=== PATIENT | female | born 1975 | race Caucasian/White ===

== ENCOUNTER 2017-05-04 08:45 | Emergency (ER) | payer OTHER ==
[2017-05-04 09:35] LABS: BASO % 0.3 % (0.0-1.0); EOS % 0.5 % (0.0-3.0); HEMATOCRIT 39.8 % (36.0-47.0); HEMOGLOBIN 13.5 g/dl (12.0-16.0); IMMATURE GRANULOCYTE % 0.4 % (0-3.0); LYMPH # 2.3 10^3/uL (1.5-4.5); LYMPH % 29.6 % (24.0-44.0); MEAN CORPUSCULAR HGB CONC 33.9 g/dl (32.0-36.5); MEAN CORPUSCULAR VOLUME 94.3 fl (80.0-96.0); MONO # 0.4 10^3/uL (0.0-0.8); MONO % 4.5 % (0.0-5.0); NEUTROPHILS # 5.1 10^3/uL (1.8-7.7); NEUTROPHILS % 64.7 % (36.0-66.0); PLATELET COUNT, AUTOMATED 215 10^3/uL (150-450); RED BLOOD COUNT 4.22 10^6/uL (4.00-5.40); RED CELL DISTRIBUTION WIDTH 12.2 % (11.5-14.5); WHITE BLOOD COUNT 7.8 10^3/uL (4.0-10.0)
[2017-05-04 09:58] LABS: ALBUMIN 4.6 GM/DL (3.2-5.2); ALBUMIN/GLOBULIN RATIO 1.35 (1.00-1.93); ALKALINE PHOSPHATASE 59 U/L (45-117); ALT/SGPT 20 U/L (12-78); ANION GAP 8 MEQ/L (8-16); AST/SGOT 12 U/L (7-37); BILIRUBIN,TOTAL 0.5 MG/DL (0.2-1.0); BLOOD UREA NITROGEN 10 MG/DL (7-18); CALCIUM LEVEL 9.1 MG/DL (8.5-10.1); CARBON DIOXIDE LEVEL 28 MEQ/L (21-32); CHLORIDE LEVEL 104 MEQ/L (98-107); CREATININE FOR GFR 0.71 MG/DL (0.55-1.30); GLOMERULAR FILTRATION RATE > 60.0 (>58); GLUCOSE, FASTING 103 MG/DL (70-100); POTASSIUM SERUM 4.3 MEQ/L (3.5-5.1); SODIUM LEVEL 140 MEQ/L (136-145)
[2017-05-04 10:06] LABS: KETONE, URINE AUTO RFX NEGATIVE (NEGATIVE); LEUKOCYTE ESTERASE UR AUTO RFX TRACE (NEGATIVE); MUCUS, URINE RFX SMALL (NEGATIVE); NITRITE, URINE AUTO RFX NEGATIVE (NEGATIVE); RBC, URINE AUTO RFX 0 /HPF (0-3); SPECIFIC GRAVITY UR AUTO RFX 1.006 (1.002-1.035); SQUAM EPITHELIAL CELL UR AURFX 1 /HPF (0-6); WBC, URINE AUTO RFX 7 /HPF (0-3)
[2017-05-04 11:30] LABS: HCG, SERUM QUANTITATIVE 74 MIU/ML
== END 2017-05-04 11:23 | disposition home or self-care (01) ==
LOC: M ED 08:45
DX: O20.0 Threatened abortion (principal); Z88.0 Allergy status to penicillin; Z3A.00 Weeks of gestation of pregnancy not specified
CPT/HCPCS: 76801

== ENCOUNTER 2018-06-13 07:32 | Emergency (ER) | payer OTHER ==
[~2018-06-13] VITALS: Ht 170.2 cm; Wt 97.7 kg
[2018-06-13] MEDS ORDERED: NS 1,000 ML IV ONE (08:30)
[2018-06-13 08:53] LABS: BASO % 0.2 % (0.0-1.0); EOS # 0.1 10^3/uL (0.0-0.50); HEMOGLOBIN 11.7 g/dl (12.0-15.5); LYMPH # 2.3 10^3/uL (1.5-4.5); LYMPH % 22.7 % (24.0-44.0); MEAN CORPUSCULAR HEMOGLOBIN 32.4 pg (27.0-33.0); MEAN CORPUSCULAR HGB CONC 33.4 g/dl (32.0-36.5); MONO # 0.6 10^3/uL (0.0-0.8); MONO % 5.5 % (0.0-5.0); NEUTROPHILS % 70.2 % (36.0-66.0); PLATELET COUNT, AUTOMATED 201 10^3/uL (150-450); RED BLOOD COUNT 3.61 10^6/uL (4.00-5.40)
[2018-06-13 09:18] LABS: ALBUMIN 3.7 GM/DL (3.2-5.2); ALT/SGPT 18 U/L (12-78); AMYLASE 21 U/L (25-115); BILIRUBIN,DIRECT 0.1 MG/DL (0.0-0.2); BILIRUBIN,TOTAL 0.4 MG/DL (0.2-1.0); BLOOD UREA NITROGEN 18 MG/DL (7-18); CALCIUM LEVEL 8.5 MG/DL (8.5-10.1); CARBON DIOXIDE LEVEL 29 MEQ/L (21-32); CHLORIDE LEVEL 106 MEQ/L (98-107); CREATININE FOR GFR 0.89 MG/DL (0.55-1.30); GLOMERULAR FILTRATION RATE > 60.0 (>58); GLUCOSE, FASTING 105 MG/DL (70-100); HCG, SERUM QUALITATIVE NEGATIVE (NEGATIVE); LIPASE 89 U/L (73-393); SODIUM LEVEL 139 MEQ/L (136-145)
--- NOTE | 2018-06-13 09:54 | REP ---
RIGHT UPPER QUADRANT ULTRASOUND: Real-time sonographic evaluation of the right upper quadrant performed. The gallbladder demonstrates no evidence of intraluminal sludge or calculi, wall thickening or pericholecystic fluid. There is no intrahepatic or extrahepatic biliary dilatation, common bile duct measuring 3 mm. Liver and pancreas demonstrate no gross mass, pancreas not optimally seen due to overlying bowel gas. The right kidney is normal in size with a length of 11.7 cm with no hydronephrosis. IMPRESSION: Negative right upper quadrant ultrasound. Electronically Signed by Bj Clarke MD 06/13/2018 02:44 P
--- NOTE | 2018-06-13 10:34 | REP ---
KUB: Two views. History: Right-sided abdominal pain. Findings: Supine view of the abdomen show a normal bowel gas pattern. Psoas margins and flank stripes are intact. No mass, organomegaly, or pathologic calcification is seen. There is a mild dextroconvex curvature in the lumbar spine. No acute bony abnormality. Impression: Unremarkable KUB. Electronically Signed by Carmine Foster MD 06/13/2018 10:26 A
[2018-06-13] MEDS ORDERED: KETOROLAC 30 MG/ML VIAL (J1885) IV ONE (10:45)
[2018-06-13 11:08] LABS: APPEARANCE, URINE HAZY (CLEAR); BACTERIA, URINE AUTO 3+ (NEGATIVE); BILIRUBIN, URINE AUTO NEGATIVE (NEGATIVE); BLOOD, URINE BLOOD 1+ (NEGATIVE); COLOR, URINE YELLOW (YELLOW); GLUCOSE, URINE (UA) AUTO NEGATIVE (NEGATIVE); KETONE, URINE AUTO NEGATIVE (NEGATIVE); LEUKOCYTE ESTERASE, URINE AUTO TRACE (NEGATIVE); MUCUS, URINE SMALL (NEGATIVE); NITRITE, URINE AUTO POSITIVE (NEGATIVE); PROTEIN, URINE AUTO NEGATIVE (NEGATIVE); RBC, URINE AUTO 1 /HPF (0-3); SPECIFIC GRAVITY URINE AUTO 1.015 (1.002-1.035); SQUAMOUS EPITHELIAL CELL UR AU 2 /HPF (0-6); UROBILINOGEN, URINE AUTO 0.2 mg/dL (0.0-2.0); WBC, URINE AUTO 14 /HPF (0-3)
[2018-06-13] MEDS ORDERED: CIPR-249 PO (11:27)
[2018-06-13] MEDS ORDERED: CIPROFLOXACIN 500 MG TAB PO ONE (11:30)
[2018-06-13] MEDS ORDERED: NITROFURANTOIN (MACROBID) 100 MG CAP PO ONE (11:30)
[2018-06-13 11:49] VITALS: BP 111/62
== END 2018-06-13 12:17 | disposition home or self-care (01) ==
LOC: M ED 07:32
DX: N39.0 Urinary tract infection, site not specified (principal); N12 Tubulo-interstitial nephritis, not specified as acute or chronic; Z88.0 Allergy status to penicillin
CPT/HCPCS: 36415; 74018; 76705; 80048; 80076; 81001; 82150; 83690; 84703; 85025; 87088; 87186; 96374; 99284; J1885

== ENCOUNTER → 2018-10-10 | Outpatient (REF) | payer OTHER ==
[~2018-10-10] MED LIST: CIPR-249 PO
[2018-10-10 13:54] LABS: APPEARANCE, URINE HAZY (CLEAR); BACTERIA, URINE AUTO 1+ (NEGATIVE); BILIRUBIN, URINE AUTO NEGATIVE (NEGATIVE); BLOOD, URINE BLOOD NEGATIVE (NEGATIVE); COLOR, URINE STRAW (YELLOW); GLUCOSE, URINE (UA) AUTO NEGATIVE (NEGATIVE); KETONE, URINE AUTO NEGATIVE (NEGATIVE); LEUKOCYTE ESTERASE, URINE AUTO TRACE (NEGATIVE); NITRITE, URINE AUTO NEGATIVE (NEGATIVE); PROTEIN, URINE AUTO NEGATIVE (NEGATIVE); RBC, URINE AUTO 0 /HPF (0-3); SPECIFIC GRAVITY URINE AUTO 1.005 (1.002-1.035); SQUAMOUS EPITHELIAL CELL UR AU 3 /HPF (0-6); UROBILINOGEN, URINE AUTO 0.2 mg/dL (0.0-2.0); WBC, URINE AUTO 1 /HPF (0-3)
== END ==
LOC: M LAB REF 12:19
PROVIDERS: ATTEND Physician Assistant Medical
DX: N39.0 Urinary tract infection, site not specified (principal)

== ENCOUNTER 2022-12-23 15:00 | Observation (INO) | payer SELFPAY ==
[~2022-12-23] VITALS: Ht 171.4 cm; Wt 109.1 kg
[~2022-12-23 15:00] MED LIST changes: +ACET-907 PO; +UNRESOLVED CLARIFICATION ENTRY XX SCH
[2022-12-26] MEDS ORDERED: MOM 30ML SUSPENSION UDC PO PRN (18:55)
[2022-12-26] MEDS ORDERED: ACETAMINOPHEN TAB 650MG DOSE (2X325MG) PO PRN (18:55)
[2022-12-26] MEDS ORDERED: KETOROLAC 30 MG/ML 1ML VIAL IV PRN (19:10)
[2022-12-26 19:17] VITALS: BP 140/86; TEMP 97.7; O2SAT 97
[2022-12-26] MEDS ORDERED: HOME MED LIST COMPLETE! XX SCH (19:45)
[2022-12-26] MEDS ORDERED: celebrex PO (19:45)
[2022-12-26 20:55] LABS: HEMATOCRIT 35.6 % (36.0-47.0); MEAN CORPUSCULAR HEMOGLOBIN 32.8 pg (27.0-33.0); MEAN CORPUSCULAR HGB CONC 33.7 g/dl (32.0-36.5); MEAN CORPUSCULAR VOLUME 97.3 fl (80.0-96.0); PLATELET COUNT, AUTOMATED 216 10^3/uL (150-450); RED BLOOD COUNT 3.66 10^6/uL (4.00-5.40); WHITE BLOOD COUNT 9.2 10^3/uL (4.0-10.0)
[2022-12-26] MEDS: DOCUSATE SODIUM 100MG CAPSULE PO SCH (21:00)
[2022-12-26 21:12] LABS: INR 0.99; PROTHROMBIN TIME 12.8 SECONDS (12.5-14.5)
[2022-12-26 21:22] LABS: BLOOD UREA NITROGEN 14 MG/DL (9-23); CALCIUM LEVEL 9.3 MG/DL (8.5-10.1); CARBON DIOXIDE LEVEL 27 MMOL/L (20-31); CHLORIDE LEVEL 108 MMOL/L (98-107); CREATININE FOR GFR 0.73 MG/DL (0.55-1.30); GLOMERULAR FILTRATION RATE > 60.0 (>58); GLUCOSE, FASTING 118 MG/DL (60-100); SODIUM LEVEL 141 MMOL/L (136-145)
[2022-12-26 22:00] VITALS: BP 137/79; TEMP 97.3; O2SAT 96
[2022-12-27] VITALS (9 sets, daily range): BP systolic 117–155; BP diastolic 73–89; TEMP 95.6–97.8; O2SAT 94–97
[2022-12-27 06:53] LABS: HEMATOCRIT 36.7 % (36.0-47.0); HEMOGLOBIN 12.4 g/dl (12.0-15.5); MEAN CORPUSCULAR HEMOGLOBIN 32.5 pg (27.0-33.0); MEAN CORPUSCULAR HGB CONC 33.8 g/dl (32.0-36.5); MEAN CORPUSCULAR VOLUME 96.1 fl (80.0-96.0); PLATELET COUNT, AUTOMATED 208 10^3/uL (150-450); RED BLOOD COUNT 3.82 10^6/uL (4.00-5.40); WHITE BLOOD COUNT 7.3 10^3/uL (4.0-10.0)
[2022-12-27 07:17] LABS: BLOOD UREA NITROGEN 12 MG/DL (9-23); CALCIUM LEVEL 9.1 MG/DL (8.5-10.1); CARBON DIOXIDE LEVEL 27 MMOL/L (20-31); CHLORIDE LEVEL 107 MMOL/L (98-107); CREATININE FOR GFR 0.68 MG/DL (0.55-1.30); GLOMERULAR FILTRATION RATE > 60.0 (>58); GLUCOSE, FASTING 110 MG/DL (60-100); POTASSIUM SERUM 4.4 MMOL/L (3.5-5.1); SODIUM LEVEL 140 MMOL/L (136-145)
[2022-12-27] MEDS ORDERED: CLINDAMYCIN 900MG/50ML PREMIX BAG As Ordered ONE ×2 (07:53→11:59)
[2022-12-27] MEDS ORDERED: TRANEXAMIC ACID 100 MG/ML 10ML VIAL As Ordered ONE (07:53)
[2022-12-27] MEDS ORDERED: ROCURONIUM BROMIDE 50MG/5ML VIAL As Ordered ONE (08:17)
[2022-12-27] MEDS ORDERED: LIDOCAINE 2% 100MG/5ML SDV (FOR ANES.) As Ordered ONE (08:17)
[2022-12-27] MEDS ORDERED: propofoL 200 MG/20 ML VIAL As Ordered ONE (08:17)
[2022-12-27] MEDS ORDERED: fentaNYL 250 MCG/5 ML INJECTION As Ordered ONE (08:17)
[2022-12-27] MEDS ORDERED: MIDAZOLAM INJ 2MG/2ML VIAL As Ordered ONE (08:18)
[2022-12-27] MEDS: DOCUSATE SODIUM 100MG CAPSULE PO SCH ×2 (09:00→21:05)
[2022-12-27] MEDS ORDERED: PHENYLephrine 500MCG 5ML (100MCG/ML) SYRINGE As Ordered ONE (09:22)
[2022-12-27] MEDS ORDERED: ePHEDrine SULFATE 25 MG/5 ML(5MG/ML) SYRINGE As Ordered ONE (09:22)
[2022-12-27] MEDS ORDERED: HYDROmorphone HCL 2MG/ML 1ML VIAL As Ordered ONE (10:01)
[2022-12-27] MEDS ORDERED: KETOROLAC 60MG 2ML VIAL As Ordered ONE (10:25)
[2022-12-27] MEDS ORDERED: METOCLOPRAMIDE INJ 10MG/2ML VIAL As Ordered ONE (10:25)
[2022-12-27] MEDS ORDERED: ONDANSETRON 4MG 2ML VIAL As Ordered ONE (10:25)
[2022-12-27] MEDS ORDERED: ACETAMINOPHEN 1000MG 100ML IV BAG As Ordered ONE (10:25)
[2022-12-27] MEDS ORDERED: SUGAMMADEX SODIUM 500 MG/5 ML VIAL (BRIDION) As Ordered ONE (10:26)
[2022-12-27] MEDS ORDERED: DESFLURANE 240 ML INHALANT As Ordered ONE (11:31)
[2022-12-27] MEDS ORDERED: VANCOMYCIN 1000MG/20ML VIAL As Ordered ONE (12:08)
[2022-12-27] MEDS ORDERED: oxyCODONE 5MG TAB PO PRN ×2 (12:50→14:15)
[2022-12-27] MEDS ORDERED: ONDANSETRON 4MG 2ML VIAL IV PRN ×2 (12:50→14:15)
[2022-12-27] MEDS ORDERED: fentaNYL 100 MCG/2 ML INJECTION IV PRN ×2 (12:50→14:15)
[2022-12-27] MEDS ORDERED: MEPERIDINE 25 MG/ML 1ML VIAL IV PRN (12:50)
[2022-12-27] MEDS ORDERED: HYDROMORPHONE HCL 0.5 MG/ 0.5 ML SYRINGE IV PRN ×2 (12:50→14:15)
[2022-12-27] MEDS ORDERED: PROCHLORPERAZINE 10MG 2ML VIAL IV PRN (14:00)
[2022-12-27] MEDS ORDERED: LR 1,000 ML IV SCH ×2 (14:15)
[2022-12-27] MEDS: MORPHINE 4 MG/ML 1ML VIAL IV PRN ×3 (15:03→23:38)
[2022-12-27] MEDS: ONDANSETRON 4MG ORAL DISINTEGRATING TAB SL PRN ×2 (17:28→20:41)
[2022-12-27] MEDS: ACETAMINOPHEN 500 MG TAB PO SCH ×2 (18:31→23:40)
[2022-12-27] MEDS: LACTOBACILLUS ACIDOPHILUS CAP (BACID) PO SCH ×2 (18:32→21:05)
[2022-12-27] MEDS: CLINDAMYCIN 900 MG in IV 1 EA IV SCH (21:04)
[2022-12-27] MEDS: KETOROLAC 30 MG/ML 1ML VIAL IV PRN (23:39)
[2022-12-28 04:00] VITALS: BP 120/70; TEMP 97.3; O2SAT 94
[2022-12-28] MEDS: CLINDAMYCIN 900 MG in IV 1 EA IV SCH (05:23)
[2022-12-28] MEDS: MORPHINE 4 MG/ML 1ML VIAL IV PRN (05:24)
[2022-12-28] MEDS: ACETAMINOPHEN 500 MG TAB PO SCH ×2 (05:25→11:40)
[2022-12-28] MEDS: KETOROLAC 30 MG/ML 1ML VIAL IV PRN (05:25)
[2022-12-28] MEDS: LACTOBACILLUS ACIDOPHILUS CAP (BACID) PO SCH ×2 (07:49→12:30)
[2022-12-28] MEDS: DOCUSATE SODIUM 100MG CAPSULE PO SCH (07:49)
[2022-12-28 08:00] VITALS: BP 128/76; TEMP 96.7; O2SAT 98
[2022-12-28 08:15] VITALS: O2SAT 95
[2022-12-28 08:39] LABS: HEMATOCRIT 33.9 % (36.0-47.0); HEMOGLOBIN 11.3 g/dl (12.0-15.5); MEAN CORPUSCULAR HEMOGLOBIN 32.7 pg (27.0-33.0); MEAN CORPUSCULAR HGB CONC 33.3 g/dl (32.0-36.5); PLATELET COUNT, AUTOMATED 225 10^3/uL (150-450); RED BLOOD COUNT 3.46 10^6/uL (4.00-5.40); WHITE BLOOD COUNT 15.1 10^3/uL (4.0-10.0)
[2022-12-28] MEDS ORDERED: oxyCODONE 5MG TAB PO PRN ×2 (09:40)
[2022-12-28] MEDS ORDERED: KETOROLAC TROMETHAMINE 10 MG TAB PO PRN (09:40)
[2022-12-28] MEDS ORDERED: OXYC-517 PO ×2 (11:00→12:33)
[2022-12-28] MEDS ORDERED: ACET-683 PO ×2 (11:00→12:33)
[2022-12-28] MEDS ORDERED: KETO10TAB PO ×2 (11:00→12:33)
== END 2022-12-28 12:30 | disposition home or self-care (01) ==
LOC: EDSTATUS 15:00 → M ED INP 12-26 17:51 → M PED 12-26 19:03
PROVIDERS: ADMIT Student in an Organized Health Care Education/Training Program; ATTEND Orthopaedic Surgery
DX: S52.122A Displaced fracture of head of left radius, initial encounter for closed fracture (principal); S52.042A Displaced fracture of coronoid process of left ulna, initial encounter for closed fracture; S53.432A Radial collateral ligament sprain of left elbow, initial encounter; S42.447 Incarcerated fracture (avulsion) of medial epicondyle of right humerus; W10.0XXA Fall (on)(from) escalator, initial encounter; Y92.89 Other specified places as the place of occurrence of the external cause; Y93.9 Activity, unspecified; Y99.9 Unspecified external cause status; M25.422 Effusion, left elbow; F17.218 Nicotine dependence, cigarettes, with other nicotine-induced disorders; Z79.899 Other long term (current) drug therapy
CPT/HCPCS: 24343; 24366; 24685; 36415; 73080; 73110; 76000; 80048; 85027; 85610; 96365; 96366; 96375; 96376; C1713; J0131; J0665; J0737; J1100; J1170; J1885; J2250; J2371; J2405; J2765; J3010; J3370

== ENCOUNTER 2024-07-16 20:29 | Emergency (ER) | payer OTHER ==
[~2024-07-16 20:29] MED LIST changes: +ACET-683 PO; +KETO10TAB PO; +OXYC-517 PO; -UNRESOLVED CLARIFICATION ENTRY XX SCH; +celebrex PO
[2024-07-16] MEDS ORDERED: ISOVUE-370 76% 100ML VIAL As Ordered ONE (20:43)
[2024-07-16 21:11] LABS: BASO % 0.3 % (0.0-1.0); EOS # 0.2 10^3/uL (0.0-0.5); EOS % 1.7 % (0.0-3.0); HEMATOCRIT 41.8 % (36.0-47.0); HEMOGLOBIN 13.9 g/dl (12.0-15.5); LYMPH % 41.1 % (24.0-44.0); MEAN CORPUSCULAR HEMOGLOBIN 32.3 pg (27.0-33.0); MEAN CORPUSCULAR HGB CONC 33.3 g/dl (32.0-36.5); MONO # 0.6 10^3/uL (0.0-0.8); MONO % 5.2 % (2.0-8.0); NEUTROPHILS # 6.2 10^3/uL (1.5-8.5); NEUTROPHILS % 51.3 % (36.0-66.0); PLATELET COUNT, AUTOMATED 234 10^3/uL (150-450); RED BLOOD COUNT 4.31 10^6/uL (4.00-5.40)
[2024-07-16 21:34] LABS: INR 0.94; PARTIAL THROMBOPLASTIN TIME 30.4 SECONDS (24.8-34.2); PROTHROMBIN TIME 12.9 SECONDS (12.5-14.5)
[2024-07-16] MEDS: methylPREDNISolone 125MG 2ML VIAL IV ONE (21:49)
[2024-07-16] MEDS ORDERED: PRED20TA PO (22:01)
[2024-07-16 22:15] VITALS: BP 114/65; TEMP 98.3; O2SAT 95
== END 2024-07-16 22:25 | disposition home or self-care (01) ==
LOC: M ED 20:29
DX: G51.0 Bell's palsy (principal); F17.200 Nicotine dependence, unspecified, uncomplicated; Z79.899 Other long term (current) drug therapy; Z88.0 Allergy status to penicillin
CPT/HCPCS: 70450; 70496; 70498; 80047; 85025; 85610; 85730; 93005; 93041; 94760; 96374; 99284; J2919; Q9967